=== PATIENT | male | born 2000 | race Two or more races ===

== ENCOUNTER 2019-10-05 23:43 | Emergency (ER) | payer MEDICAID ==
[~2019-10-05] VITALS: Ht 167.6 cm; Wt 61.4 kg
[2019-10-06] MEDS ORDERED: KETOROLAC TROMETHAMINE 30 MG/ML VIAL IVP ONE
[2019-10-06] MEDS ORDERED: SODIUM CHLORIDE 0.9% 1,000 ML IV ONE
[2019-10-06] MEDS ORDERED: ONDANSETRON HCL 4 MG/2 ML VIAL IVP ONE
[2019-10-06 00:42] LABS: BASOPHILS % (AUTO) 0.1 % (0.0-2.0); EOSINOPHILS % (AUTO) 0 % (1.0-6.0); HEMATOCRIT 42.4 % (41-53); HEMOGLOBIN 14.6 g/dL (13.5-17.5); LYMPHOCYTES # (AUTO) 0.5 K/uL (1.0-4.8); LYMPHOCYTES % (AUTO) 3.9 % (22.0-44.0); MEAN CORPUSCULAR HEMOGLOBIN 30.4 pg (26.0-34.0); MEAN CORPUSCULAR HGB CONC 34.5 G/dL (31.0-37.0); MEAN CORPUSCULAR VOLUME 88 fL (80-100); MONOCYTES # (AUTO) 0.3 K/uL (0.1-1.0); MONOCYTES % (AUTO) 2.4 % (2.0-9.0); NEUTROPHILS # (AUTO) 12.3 K/uL (1.8-7.7); PLATELET COUNT (AUTO) 253 K/uL (150-450); RED BLOOD CELL COUNT(AUTO) 4.81 MIL/uL (4.50-5.90); RED CELL DISTRIBUTION WIDTH 12.5 % (11.5-14.5)
[2019-10-06 00:44] LABS: NEUTROPHILS % (AUTO) 93.6 % (40.0-70.0)
[2019-10-06 00:45] LABS: APPEARANCE,URINE CLEAR (CLEAR); BILIRUBIN,URINE NEGATIVE (NEGATIVE); GLUCOSE, URINE (UA) NEGATIVE (NEGATIVE); KETONES,URINE >=80 mg/dL (NEGATIVE); LEUKOCYTE ESTERASE ,URINE NEGATIVE (NEGATIVE); NITRATE,URINE NEGATIVE (NEGATIVE); OCCULT BLOOD,URINE NEGATIVE (NEGATIVE); PH,URINE 7.5 (5.0-8.0); PROTEIN,URINE SEE CONFIRM (NEGATIVE); UROBILINOGEN,URINE 0.2 mg/dL (<=1.0)
[2019-10-06 00:52] LABS: BACTERIA,URINE None Seen /HPF (None Seen); MUCUS,URINE Few LPF (None Seen); RBC,URINE 0-2 /HPF (0-2); SQUAMOUS EPITHELIAL CELL,UR Rare /LPF (None Seen); SULFOSALICYLIC ACID,URINE Trace (Negative); WBC,URINE 0-2 /HPF (0-5)
[2019-10-06 00:53] LABS: ANION GAP 13 mmol/L (8-16); CALCIUM, TOTAL 9.9 mg/dL (8.8-10.5); CARBON DIOXIDE 28 mmol/L (22-29); CHLORIDE 101 mmol/L (98-107); CREATININE 1.47 mg/dL (0.60-1.30); GLOMERULAR FILTR. RATE CALC > 60 mL/min (>60); GLUCOSE,RANDOM 171 mg/dL (70-110); POTASSIUM 3.6 mmol/L (3.5-5.1); SODIUM SERUM 142 mmol/L (136-145); UREA NITROGEN, BLOOD 19 mg/dL (7-18)
[2019-10-06 00:55] LABS: INR 1.1 (0.9-1.1); PROTHROMBIN TIME 11.2 SEC (9.4-11.6)
[2019-10-06 00:58] LABS: ALANINE AMINOTRANSFERASE 23 U/L (12-78); ALBUMIN 5.2 g/dL (3.4-5.0); ALKALINE PHOSPHATASE 93 U/L (46-116); ASPARTATE AMINOTRANSFERASE 19 U/L (15-37); BILIRUBIN,TOTAL 0.6 mg/dL (0.1-1.0); LIPASE 116 U/L (73-393); TOTAL PROTEIN, SERUM 9.8 g/dL (6.4-8.2)
[2019-10-06 02:25] VITALS: BP 105/75
== END 2019-10-06 02:29 | disposition home or self-care (01) ==
LOC: EMS 23:43
DX: E86.0 Dehydration (principal); R11.2 Nausea with vomiting, unspecified; R19.7 Diarrhea, unspecified; R06.02 Shortness of breath; F12.90 Cannabis use, unspecified, uncomplicated; Z20.828 Contact with and (suspected) exposure to other viral communicable diseases
CPT/HCPCS: 36415; 80053; 81001; 83690; 83880; 85025; 85610; 93005; 96361; 96374; 96375; 99284; J1885; J2405; J7030; U0003

== ENCOUNTER 2019-10-09 17:21 | Emergency (ER) | payer MEDICAID ==
[~2019-10-09] VITALS: Ht 167.6 cm; Wt 56.8 kg
[2019-10-09] MEDS ORDERED: HALOPERIDOL LACTATE 5 MG/ML VIAL IVP ONE (17:45)
[2019-10-09] MEDS ORDERED: CAPSAICIN 0.025% 60 GM CREAM TP ONE (17:45)
[2019-10-09] MEDS ORDERED: ONDANSETRON HCL 4 MG/2 ML VIAL IVP ONE (17:45)
[2019-10-09] MEDS ORDERED: FAMOTIDINE 10 MG/ML 2 ML VIAL IVP ONE (17:45)
[2019-10-09 18:17] LABS: BASOPHILS % (AUTO) 0.4 % (0.0-2.0); EOSINOPHILS % (AUTO) 0.3 % (1.0-6.0); HEMATOCRIT 41.6 % (41-53); HEMOGLOBIN 14.2 g/dL (13.5-17.5); LYMPHOCYTES # (AUTO) 1.7 K/uL (1.0-4.8); LYMPHOCYTES % (AUTO) 26.6 % (22.0-44.0); MEAN CORPUSCULAR HEMOGLOBIN 30.2 pg (26.0-34.0); MEAN CORPUSCULAR HGB CONC 34.2 G/dL (31.0-37.0); MEAN CORPUSCULAR VOLUME 88 fL (80-100); MONOCYTES # (AUTO) 0.5 K/uL (0.1-1.0); MONOCYTES % (AUTO) 7.6 % (2.0-9.0); NEUTROPHILS # (AUTO) 4.1 K/uL (1.8-7.7); NEUTROPHILS % (AUTO) 65.1 % (40.0-70.0); PLATELET COUNT (AUTO) 254 K/uL (150-450); RED BLOOD CELL COUNT(AUTO) 4.72 MIL/uL (4.50-5.90); RED CELL DISTRIBUTION WIDTH 12.3 % (11.5-14.5)
[2019-10-09 18:44] LABS: ANION GAP 9 mmol/L (8-16); CALCIUM, TOTAL 9.4 mg/dL (8.8-10.5); CARBON DIOXIDE 26 mmol/L (22-29); CHLORIDE 103 mmol/L (98-107); CREATININE 1.19 mg/dL (0.60-1.30); GLOMERULAR FILTR. RATE CALC > 60 mL/min (>60); GLUCOSE,RANDOM 105 mg/dL (70-110); POTASSIUM 3.3 mmol/L (3.5-5.1); SODIUM SERUM 138 mmol/L (136-145); UREA NITROGEN, BLOOD 20 mg/dL (7-18)
[2019-10-09 18:52] LABS: ALANINE AMINOTRANSFERASE 27 U/L (12-78); ALBUMIN 4.9 g/dL (3.4-5.0); ALKALINE PHOSPHATASE 80 U/L (46-116); ASPARTATE AMINOTRANSFERASE 18 U/L (15-37); BILIRUBIN,TOTAL 0.5 mg/dL (0.1-1.0); LIPASE 211 U/L (73-393); TOTAL PROTEIN, SERUM 9.2 g/dL (6.4-8.2)
[2019-10-09 20:20] VITALS: BP 111/63
[2019-10-10] MEDS ORDERED: ONDA-104 PO (15:21)
== END 2019-10-09 20:30 | disposition home or self-care (01) ==
LOC: EMS 17:39
DX: F12.188 Cannabis abuse with other cannabis-induced disorder (principal); R11.2 Nausea with vomiting, unspecified
CPT/HCPCS: 36415; 80053; 83690; 85025; 96374; 96375; 99284; J1630; J3490

== ENCOUNTER 2019-10-10 15:15 | Emergency (ER) | payer MEDICAID ==
[~2019-10-10] VITALS: Ht 167.6 cm; Wt 56.8 kg
[2019-10-10] MEDS ORDERED: ONDA-104 PO (15:21)
[2019-10-10] MEDS ORDERED: BENZTROPINE MESYLATE 1 MG/ML 2 ML VIAL IM ONE (16:45)
[2019-10-10] MEDS ORDERED: DIAZEPAM 5 MG/ML 2 ML SYRINGE IM ONE (16:45)
[2019-10-10] MEDS ORDERED: KETOROLAC TROMETHAMINE 30 MG/ML VIAL IM ONE (16:45)
[2019-10-10 18:12] VITALS: BP 141/79
== END 2019-10-10 18:41 | disposition home or self-care (01) ==
LOC: EMS 15:17
DX: G24.3 Spasmodic torticollis (principal); M54.2 Cervicalgia; R11.2 Nausea with vomiting, unspecified; T50.995A Adverse effect of other drugs, medicaments and biological substances, initial encounter; F12.90 Cannabis use, unspecified, uncomplicated; Y92.89 Other specified places as the place of occurrence of the external cause
CPT/HCPCS: 96372; 99284; J0515; J1885

== ENCOUNTER 2019-10-14 17:36 | Emergency (ER) | payer MEDICAID ==
[~2019-10-14] VITALS: Ht 167.6 cm; Wt 54.5 kg
[~2019-10-14 17:36] MED LIST: ONDA-104 PO
[2019-10-14] MEDS ORDERED: SODIUM CHLORIDE 0.9% 1,000 ML IV ONE (18:00)
[2019-10-14] MEDS ORDERED: METOCLOPRAMIDE HCL 5 MG/ML 2 ML VIAL IVP ONE (18:00)
[2019-10-14 18:07] LABS: BASOPHILS % (AUTO) 0.3 % (0.0-2.0); EOSINOPHILS % (AUTO) 0 % (1.0-6.0); HEMATOCRIT 41.3 % (41-53); HEMOGLOBIN 13.6 g/dL (13.5-17.5); LYMPHOCYTES # (AUTO) 0.7 K/uL (1.0-4.8); LYMPHOCYTES % (AUTO) 4.5 % (22.0-44.0); MEAN CORPUSCULAR HEMOGLOBIN 28.9 pg (26.0-34.0); MEAN CORPUSCULAR VOLUME 88 fL (80-100); MONOCYTES # (AUTO) 0.7 K/uL (0.1-1.0); PLATELET COUNT (AUTO) 255 K/uL (150-450); RED BLOOD CELL COUNT(AUTO) 4.71 MIL/uL (4.50-5.90); RED CELL DISTRIBUTION WIDTH 12.5 % (11.5-14.5)
[2019-10-14 18:23] LABS: ANION GAP 13 mmol/L (8-16); CALCIUM, TOTAL 9.7 mg/dL (8.8-10.5); CARBON DIOXIDE 26 mmol/L (22-29); CHLORIDE 98 mmol/L (98-107); CREATININE 1.09 mg/dL (0.60-1.30); GLOMERULAR FILTR. RATE CALC > 60 mL/min (>60); GLUCOSE,RANDOM 110 mg/dL (70-110); POTASSIUM 3.2 mmol/L (3.5-5.1); SODIUM SERUM 137 mmol/L (136-145); UREA NITROGEN, BLOOD 21 mg/dL (7-18)
[2019-10-14 18:30] LABS: ALANINE AMINOTRANSFERASE 45 U/L (12-78); ALKALINE PHOSPHATASE 75 U/L (46-116); ASPARTATE AMINOTRANSFERASE 112 U/L (15-37); BILIRUBIN,TOTAL 0.8 mg/dL (0.1-1.0); LIPASE 83 U/L (73-393); TOTAL PROTEIN, SERUM 8.8 g/dL (6.4-8.2)
[2019-10-14 18:31] LABS: NEUTROPHILS % (AUTO) 91.2 % (40.0-70.0)
[2019-10-14] MEDS ORDERED: HALOPERIDOL LACTATE 5 MG/ML VIAL IVP ONE (18:45)
[2019-10-14] MEDS ORDERED: DiphenhydrAMINE HCL 50 MG/ML VIAL IVP ONE (18:45)
[2019-10-14 20:00] VITALS: BP 135/70
== END 2019-10-14 20:00 | disposition home or self-care (01) ==
LOC: EMS 17:36
DX: F12.188 Cannabis abuse with other cannabis-induced disorder (principal); Z79.899 Other long term (current) drug therapy
CPT/HCPCS: 36415; 80053; 83690; 85025; 96361; 96374; 96375; 99284; J1200; J1630; J2765; J7030